=== PATIENT | male | born 1955 | race Caucasian/White ===

== ENCOUNTER → 2017-04-04 | Outpatient (CLI) | payer OTHER ==
--- NOTE | 2017-04-04 15:30 | RAD ---
Head CT without contrast 04/04/2017 at 1519 hours Indication: Head injury, laceration Comparison: None available Technique: Multiple axial noncontrast CT images of the head from the skull base to the vertex were obtained. Findings: The ventricles, sulci and basal cisterns are normal. There is no loss of the normal kramer-white matter differentiation. There is no acute intracranial hemorrhage. Posterior fossa is normal. Right lens replacement noted. There is moderate mucosal thickening of the left maxillary sinus. Mucosal thickening is noted in the posterior left ethmoid air cells and left sphenoid sinus. Mastoid air cells are well aerated. Prominent arachnoid granulations are noted in the left posterior fossa. No definite fracture is identified. Coarse density of the calvaria with right vertex laceration. Impression: 1. Right vertex laceration without underlying calvarial defect or intracranial hemorrhage. 2. Coarse density of the calvaria with somewhat mottled appearance may be seen with underlying renal disease or long-standing anemia. PQRS Compliance Statement: One or more of the following individualized dose reduction techniques were utilized for this examination: 1. Automated exposure control 2. Adjustment of the mA and/or kV according to patient size 3. Use of iterative reconstruction technique
== END | disposition home or self-care (01) ==
LOC: CT 15:00
PROVIDERS: ATTEND Preventive Medicine Occupational Medicine
DX: S01.90XA Unspecified open wound of unspecified part of head, initial encounter (principal); X58.XXXA Exposure to other specified factors, initial encounter; Y93.89 Activity, other specified; Y92.89 Other specified places as the place of occurrence of the external cause; Y99.8 Other external cause status
CPT/HCPCS: 70450